=== PATIENT | female | born 1960 | race Caucasian/White ===

== ENCOUNTER 2016-09-07 12:06 | Emergency (ER) | payer OTHER ==
[~2016-09-07] VITALS: Ht 170.2 cm; Wt 73.0 kg
--- OUTSIDE RECORDS SUMMARY | 2016-09-07 12:13 | External Medical Summary Rpt ---
Demographics Preferred Language [place] Marital Status Unknown Sabianist Affiliation Unknown Race Unknown Ethnic Group Unknown Author Author , Organization [employer] Address Unknown Phone Unavailable Purpose Continuity of Care Document - through 2016 Immunization No patient found.
--- OUTSIDE RECORDS SUMMARY | 2016-09-07 12:13 | External Medical Summary Rpt ---
Author Author [employer] Organization [employer] Address Unknown Phone Unavailable Purpose Continuity of Care Document - through 2016
--- OUTSIDE RECORDS SUMMARY | 2016-09-07 12:13 | External Medical Summary Rpt ---
Demographics Preferred Language Citizen Of [place] Marital Status Unknown Hindu Affiliation Unknown Race Unknown Ethnic Group Unknown Author Author , Organization [employer] Address Unknown Phone Unavailable Purpose Continuity of Care Document - through 2016 Immunization No patient found.
--- OUTSIDE RECORDS SUMMARY | 2016-09-07 12:13 | External Medical Summary Rpt ---
Author Author [facility] [employer], [employer] Organization [employer] Address Unknown Phone Unavailable
[2016-09-07 12:18] LABS: URINE BILIRUBIN - DIPSTICK NEGATIVE (NEG)
[2016-09-07 12:19] LABS: URINE BLOOD TRACE (NEG)
[2016-09-07] MEDS ORDERED: PYRIDIUM200 M2 PO (12:48)
[2016-09-07] MEDS ORDERED: MACRODANTIN100 MG PO (12:48)
--- NOTE | 2016-09-07 12:49 | Urgent Treatment Center Report ---
History of Present Issue Date/Time Seen by Provider 09/07/16 1235 Visit Reason Pt arrived:Walked Presenting Problem:POSSIBLE UTI. BURNING WITH URINATION, URGENCY. Location if Accident: Onset of symptoms date/time:07/27/1611/05/999 or onset unknown for: Have you (or family members/close friends) recently traveled outside the [place]? N If Yes, where/when: Have you had exposure to infectious disease within the past month? TB? Other? Specify: c/o "another UTI". dysuria, urgeny, frequency present x weeks "like 3-4 weeks". pt has completed 4 boxes of azo without improvement so decided she should be seen. "Just too busy to get here sooner". Symptoms mild but persistant. Denies fever, aches, abdominal pain, back pain, change urine color or smell. Other than azo, hasn't taken or tried anything else. Source patient Exam Limitations no limitations ALLERGIES Coded Allergies: Sulfa (Sulfonamide Antibiotics) (Intermediate, I-HIVES 08/13/15) clindamycin (Intermediate, I-HIVES 08/13/15) Penicillins (Mild, I-HIVES 08/13/15) History Medical History General CAD? No Angina: No IA: No Hypertension? No Hyperlipidemia? Yes CHF? No DVT? Yes PE? No COPD? No Asthma? No Anemia? No GERD? Yes Gastric ulcers? No GI Bleed? No Hernia? No Thyroid Problems? No Hypothyroidism? No CVA? No Seizures? No Diabetes? No Renal Insuffiency? No UTI? Yes Stones? No BPH? No GB Disease: No Nephritic Syndrome? No Asplenia? No Hepatitis? No Sickle Cell Disease? No Arthritis? No Migraines? No Cataracts? No Glaucoma? No MRSA? No HIV? No TB? No Anxiety? No Depression? No Cancer? No Immunization HX Ped.Immunizations UTD Yes DT/Tetanus 1-4 Years Ago Surgical Hx Previous Surgery?Y Cholecystectomy Hysterectomy-Total [employer] Hx LMP N/A Social History Smoking Hx Smoker: Former Smoker Tobacco: No Are you/the child exposed to second-hand smoke: No Alcohol Alcohol: No Review of Systems All Other Systems Reviewed and Negative Constitutional see HPI Gastrointestinal see HPI Genitourinary see HPI. denies: discharge, hematuria, pelvic pain. Physical Exam Vital Signs Vital Signs Date Time Temp Pulse Resp B/P Pulse O2 O2 Flow FiO2 Ox Delivery Rate 09/07 1253 97.8 82 18 125/78 100 09/07 1217 97.8 82 18 125/78 100 General Appearance normal appearance, no apparent distress Respiratory Status No: respiratory distress. Cardiovascular no peripheral edema Gastrointestinal normal bowel sounds, non tender, soft, no suprapubic tenderness , no bladder distention Back no CVA tenderness Neurologic alert Skin intact, normal color, warm/dry Medical Decision Making LABS/Meds/Orders Pt receiving controlled substance in ED? No Results/Orders Laboratory Tests 09/07/16 1214: Urine Color YELLOW, Urine Appearance Clear, Urine pH 6.5, Ur Specific [place] 1.015, Urine Protein NEGATIVE, Urine Ketones NEGATIVE, Urine Blood TRACE H, Urine Nitrate NEGATIVE, Urine Bilirubin NEGATIVE, Urine Urobilinogen 1.0, Ur Leukocyte Esterase TRACE H, Urine Glucose NEGATIVE Orders Procedure Date/time Status CULTURE, URINE 09/07 1247 Active UTC URINE DIPSTICK 09/07 1214 Complete Departure Departure Time of Disposition 1246 Disposition DC Home or Self Care(routine) Clinical Impression Primary Impression: UTI (urinary tract infection) Qualifiers: Urinary tract infection type: site unspecified Hematuria presence: with hematuria Qualified Code: N39.0 - Urinary tract infection, site not specified Condition STABLE Referrals MAISHA LEZAMA APRN Be SURE to follow up anytime for new or worsening symptoms, if no improvement in 48 hours AND in 10-14 days to repeat UA and ensure infection resolved and blood no longer present. Patient Instructions DI for Urinary Tract Infection (UTI) Additional Instructions * increase fluids, Water and NOT soda or tea * Start antibiotic immediately and be sure to take as ordered for the FULL length of time although you should start to see improvement over the next 48 hours. * pyridium as needed. Remember this will turn your urine ORANGE, this is normal but will stain whatever it gets on * You should not need the pyridium longer than 48 hours. If so, follow up with primary care to review urine culture and ensure antibiotic is adequate * Be SURE to follow up anytime for new or worsening symptoms, if no improvement in 48 hours AND in 10-14 days to repeat UA and ensure infection resolved and blood no longer present. * Be sure to let your PCP (or whoever you follow up with) know we sent urine culture so they can request records and ensure you are on the appropriate antibiotic if you are not getting better or getting worse!!! Discharge Counseling Counseled pt/family regarding diagnosis, test results, medications/RX, home care, follow up needs Prescriptions Current Visit Scripts NITROFURANTOIN MACROCRYSTAL (Macrodantin 100MG) 100 MG PO BID #14 CAP Phenazopyridine HCl (Pyridium) 200 MG PO TIDP PRN dysuria #6 TAB at 2056
[2016-09-07 12:53] VITALS: BP 125/78
== END 2016-09-07 12:53 | disposition home or self-care (01) ==
LOC: UTC 12:06
PROVIDERS: Nurse Practitioner
DX: N39.0 Urinary tract infection, site not specified (principal); K21.9 Gastro-esophageal reflux disease without esophagitis